=== PATIENT | female | born 1950 | race Caucasian/White ===

== ENCOUNTER 2019-03-10 07:07 | Day surgery (SDC) | payer MEDICARE, BC ==
[2019-03-10] MEDS ORDERED: Propofol 200 MG/20 ML SDV IV ONE (07:08)
[2019-03-10] MEDS ORDERED: Lidocaine 2% 100 MG/5 ML Syringe IVPUSH ONE (07:08)
[2019-03-10] MEDS ORDERED: Midazolam 1 MG/ML 2 ML SDV IV ONE (07:08)
[2019-03-10] MEDS ORDERED: Lactated Ringers 1,000 ML IV SCH (07:15)
--- NOTE | 2019-03-10 09:03 | PCM.OPNOTE ---
- General Post-Op/Procedure Note Date of Surgery/Procedure: 03/10/19 Operative Procedure(s): egd with bx Findings: gastritis fundic gland hyperplasia Beth's esophagus Pre Op Diagnosis: epigastric abd pain. Hx of Beth's esophagus Post-Op Diagnosis: gastritis. fundic gland hyperplasia. Beth's esophagus Anesthesia Technique: MAC Primary Surgeon: Jadiel Pavon Anesthesia Provider: Chela Chavez ([facility]) Pathology: stomach distal esophagus Complications: None Condition: Good Free Text/Narrative:: see dictation
[2019-03-10 09:58] VITALS: BP 155/71
--- NOTE | 2019-03-10 11:22 | OR ---
DATE OF OPERATION: 03/10/2019 SURGEON: Jadiel Pavon MD PROCEDURE PERFORMED: Esophagogastroduodenoscopy with cold forceps biopsy. PREOPERATIVE DIAGNOSES: History of Beth esophagus, history of epigastric abdominal pain. POSTOPERATIVE DIAGNOSES: Gastritis with fundic gland hyperplasia and Beth esophagus. INDICATIONS FOR PROCEDURE: This is a 68-year-old white female, who is referred with the above-mentioned history. She was offered and accepted an esophagogastroduodenoscopy. DESCRIPTION OF OPERATION: After an excellent IV sedation was administered, bite block was inserted. Flexible endoscope was passed without difficulty down the patient's esophagus into the stomach. Stomach was insufflated, scope passed through the pylorus to the second portion of the duodenum and then slowly withdrawn. The following findings were noted. Duodenum is unremarkable. Stomach demonstrated some gastritis in the antrum as well as some what appeared to be fundic gland hyperplasia. Random biopsies were taken and both of these areas were submitted in one container. GE junction measured approximately 36 cm. There was an irregular Z-line with what appeared to be islands of squamous cell mucosa, very suggestive of Beth esophagus. Circumferential biopsies were taken of the intestinal metaplasia and submitted in one container. The remainder of the esophageal exam was unremarkable. Stomach was deflated. Scope was removed. The patient tolerated the procedure well. Results by letter. /[id number] /MODL
== END 2019-03-10 09:58 | disposition home or self-care (01) ==
LOC: FB.SDS 07:07
PROVIDERS: ATTEND Surgery
DX: K22.70 Barrett's esophagus without dysplasia (principal); K29.50 Unspecified chronic gastritis without bleeding; K21.0 Gastro-esophageal reflux disease with esophagitis; K31.89 Other diseases of stomach and duodenum; K59.09 Other constipation; I10 Essential (primary) hypertension; E03.9 Hypothyroidism, unspecified; Z88.0 Allergy status to penicillin; Z87.19 Personal history of other diseases of the digestive system; Z87.11 Personal history of peptic ulcer disease; Z79.899 Other long term (current) drug therapy
CPT/HCPCS: 00731; 43239; 88305; 88313; 88342; J2001; J2250; J2704; J7120